=== PATIENT | female | born 1950 | race Caucasian/White ===

== ENCOUNTER 2021-10-17 09:15 | Day surgery (SDC) | payer MEDICARE ==
[2021-10-17] MEDS ORDERED: Propofol 200 MG/20 ML SDV ONE (09:41)
[2021-10-17] MEDS ORDERED: fentaNYL 100 MCG/2 ML SDV ONE (09:42)
[2021-10-17] MEDS ORDERED: Midazolam 1 MG/ML 2 ML SDV ONE (09:42)
[2021-10-17] MEDS ORDERED: Sodium Chloride 0.9% 1,000 ML IV SCH (09:45)
--- NOTE | 2021-10-18 20:53 | OR ---
DATE OF PROCEDURE: 10/17/2021 SURGEON: Connor Alexander MD PROCEDURE: Colonoscopy. FINDINGS: Normal colonoscopy. COMPLICATIONS: None. PARKING ASSISTANT: None. ANESTHESIA: MAC. PREOPERATIVE DIAGNOSIS: Screening colonoscopy. POSTOPERATIVE DIAGNOSIS: Screening colonoscopy. RISKS: Risks, benefits, alternatives, and limitations including, but not limited to infection, bleeding, perforation, false positives, false negatives were explained to the patient who wished to proceed. PROCEDURE IN DETAIL: The patient was placed in left lateral decubitus position. Digital rectal exam was performed without abnormality. Scope was introduced and advanced atraumatically to the ileocecal valve. A photo was taken of this. Scope was brought back to the ascending, transverse, descending colon, and retroflexed. No evidence of old or new blood. No masses. No polyps. No diverticulosis. No colitis. No old or new blood. Greater than 8 minutes was spent removing the scope. No abnormalities on retroflexion. Prep was marginal, approximately 85% to 90% of the luminal surface could be seen, possibly precluding 5 mm polyps or so due to the retained material. Connor Alexander MD /[id number]
== END 2021-10-17 12:08 | disposition home or self-care (01) ==
LOC: JP.SDS 09:15
PROVIDERS: ATTEND Surgery
DX: Z12.11 Encounter for screening for malignant neoplasm of colon (principal)
CPT/HCPCS: G0121; J2250; J2704; J3010; J7030